=== PATIENT | female | born 1955 | race Caucasian/White ===

== ENCOUNTER → 2016-11-10 | Outpatient (CLI) | payer OTHER ==
[~2016-11-10] MED LIST: AMLO-511 PO; HYDR-3965 PO; LUTE6CAP2 PO; RIVA15T PO; ROSU10 PO
[2016-11-10 13:38] LABS: BASOPHILS % (AUTO) 0.8 % (0.0-2.0); EOSINOPHILS % (AUTO) 3.9 % (1.0-6.0); HEMATOCRIT 41.9 % (36-46); HEMOGLOBIN 13.7 g/dL (12.0-16.0); LYMPHOCYTES # (AUTO) 1.2 K/uL (1.0-4.8); LYMPHOCYTES % (AUTO) 21.3 % (22.0-44.0); MEAN CORPUSCULAR HEMOGLOBIN 28.9 pg (26.0-34.0); MEAN CORPUSCULAR HGB CONC 32.8 G/dL (31.0-37.0); MEAN CORPUSCULAR VOLUME 88 fL (80-100); MONOCYTES # (AUTO) 0.4 K/uL (0.1-1.0); MONOCYTES % (AUTO) 7.4 % (2.0-9.0); NEUTROPHILS # (AUTO) 3.8 K/uL (1.8-7.7); NEUTROPHILS % (AUTO) 66.6 % (40.0-70.0); PLATELET COUNT (AUTO) 194 K/uL (150-450); RED BLOOD CELL COUNT(AUTO) 4.76 MIL/uL (4.00-5.20); RED CELL DISTRIBUTION WIDTH 13.1 % (11.5-14.5); WHITE BLOOD COUNT (AUTO) 5.7 K/uL (4.5-11.0)
[2016-11-10 13:47] LABS: ALANINE AMINOTRANSFERASE 27 U/L (12-78); ALBUMIN 3.9 g/dL (3.4-5.0); ANION GAP 10 mmol/L (8-16); ASPARTATE AMINOTRANSFERASE 24 U/L (15-37); BILIRUBIN,TOTAL 0.5 mg/dL (0.1-1.0); CALCIUM, TOTAL 8.8 mg/dL (8.8-10.5); CARBON DIOXIDE 26 mmol/L (22-29); CHLORIDE 104 mmol/L (98-107); CREATININE 0.78 mg/dL (0.60-1.30); GLOMERULAR FILTR. RATE CALC > 60 mL/min (>60); POTASSIUM 4.1 mmol/L (3.5-5.1); SODIUM SERUM 140 mmol/L (136-145); TOTAL PROTEIN, SERUM 7.4 g/dL (6.4-8.2); UREA NITROGEN, BLOOD 17 mg/dL (7-18)
[2016-11-13 03:55] LABS: DRVVT CONFIRMATION-LUPUS 1.5 ratio (0.8-1.2); DRVVT CORRECTED MIX-LUPUS 71.8 sec (0.0-44.0); HEXAGONAL PHOS NEUTRALIZ REFLX 21 sec (0-11); LUP DRVVT CONFIRM REFLEX? YES; LUP DRVVT CORR. MIX REFLEX? YES; LUP HEXAGONL PHOS REFLEX? YES; LUP PTT-CORRECTED MIX REFLEX? YES; LUPUS SENSITIVE PTT 46.1 sec (0.0-40.6)
[2016-11-13 12:49] LABS: LUPUS ANTICOAG INTERPRETION Comment:
[2016-11-16 15:05] LABS: ANTITHROMBIN, ENZYMATIC ACTVTY 142 % (75-135); LUPUS INR 1.2 (0.9-1.1); PROTEIN C FUNCTIONAL(ACTIVITY) 144 % (73-180); PROTEIN S AG-TOTAL 122 % (60-150); PROTEIN S, FREE 135 % (57-157); PT-LUPUS ANTICOAGULANT 12.2 sec (9.6-11.5)
== END | disposition home or self-care (01) ==
LOC: LABPV 08:52
PROVIDERS: ATTEND Internal Medicine Hematology & Oncology
DX: Z86.711 Personal history of pulmonary embolism (principal)
CPT/HCPCS: 81240; 81241; 85300; 85305; 85306; 85613; 85732; 86147

== ENCOUNTER → 2017-04-14 | Outpatient (CLI) | payer OTHER ==
[2017-04-14 09:02] LABS: BASOPHILS # (AUTO) 0.04 K/uL (0.00-0.20); BASOPHILS % (AUTO) 0.7 % (0.0-2.0); EOSINOPHILS # (AUTO) 0.22 K/uL (0.00-0.70); HEMATOCRIT 41.2 % (36-46); HEMOGLOBIN 13.8 g/dL (12.0-16.0); LYMPHOCYTES # (AUTO) 1.2 K/uL (1.0-4.8); LYMPHOCYTES % (AUTO) 20.2 % (22.0-44.0); MEAN CORPUSCULAR HEMOGLOBIN 30.4 pg (26.0-34.0); MEAN CORPUSCULAR HGB CONC 33.5 G/dL (31.0-37.0); MEAN CORPUSCULAR VOLUME 91 fL (80-100); MONOCYTES # (AUTO) 0.5 K/uL (0.1-1.0); NEUTROPHILS # (AUTO) 3.8 K/uL (1.8-7.7); NEUTROPHILS % (AUTO) 67.3 % (40.0-70.0); PLATELET COUNT (AUTO) 163 K/uL (150-450); RED BLOOD CELL COUNT(AUTO) 4.54 MIL/uL (4.00-5.20); RED CELL DISTRIBUTION WIDTH 13.6 % (11.5-14.5); WHITE BLOOD COUNT (AUTO) 5.7 K/uL (4.5-11.0)
[2017-04-14 09:17] LABS: ALANINE AMINOTRANSFERASE 28 U/L (12-78); ALBUMIN 3.9 g/dL (3.4-5.0); ANION GAP 12 mmol/L (8-16); ASPARTATE AMINOTRANSFERASE 24 U/L (15-37); BILIRUBIN,TOTAL 0.7 mg/dL (0.1-1.0); CARBON DIOXIDE 25 mmol/L (22-29); CHLORIDE 105 mmol/L (98-107); CREATININE 0.85 mg/dL (0.60-1.30); GLOMERULAR FILTR. RATE CALC > 60 mL/min (>60); POTASSIUM 4.1 mmol/L (3.5-5.1); SODIUM SERUM 142 mmol/L (136-145); TOTAL PROTEIN, SERUM 7.3 g/dL (6.4-8.2); UREA NITROGEN, BLOOD 15 mg/dL (7-18)
[2017-04-14 09:28] LABS: HEMOGLOBIN A1C 6.2 % (4.5-6.2)
== END | disposition home or self-care (01) ==
LOC: LABPV 07:52
PROVIDERS: ATTEND Internal Medicine
DX: E78.5 Hyperlipidemia, unspecified (principal); Z79.899 Other long term (current) drug therapy
CPT/HCPCS: 83036

== ENCOUNTER 2017-05-07 06:53 | Day surgery (SDC) | payer OTHER ==
[~2017-05-07] VITALS: Ht 165.1 cm; Wt 113.6 kg
[~2017-05-07 06:53] MED LIST changes: -HYDR-3965 PO; -LUTE6CAP2 PO; +MULT-1192 PO; -RIVA15T PO; +RIVA20TA PO; +VALS1TAB75 PO
[2017-05-07] MEDS ORDERED: RINGERS SOLUTION,LACTATED 1,000 ML IV ONE ×2 (07:08→07:30)
[2017-05-07] MEDS ORDERED: SODIUM CL IRRIG SOLN BAG 6,000 ML IRRIG ONE (08:24)
[2017-05-07] MEDS ORDERED: OXYGEN THERAPY IH SCH (09:00)
[2017-05-07] MEDS ORDERED: MEPERIDINE-PF 25 MG/ML SYRINGE IVP PRN (09:00)
[2017-05-07] MEDS ORDERED: FentaNYL CITRATE-PF 100 MCG/2 ML VIAL IVP PRN (09:00)
[2017-05-07] MEDS ORDERED: KETOROLAC TROMETHAMINE 30 MG/ML VIAL ONE (10:19)
[2017-05-07] MEDS: HYDROmorphone 2 MG/ML SYRINGE IVP PRN ×3 (10:24→10:44)
[2017-05-07] MEDS ORDERED: KETOROLAC TROMETHAMINE 30 MG/ML VIAL IVP ONE (10:25)
[2017-05-07] MEDS ORDERED: MEPERIDINE-PF 25 MG/ML SYRINGE ONE (10:37)
[2017-05-07] MEDS ORDERED: HYDROmorphone 2 MG/ML SYRINGE ONE (10:38)
[2017-05-07] MEDS ORDERED: MIDAZOLAM HCL 2 MG/2 ML VIAL IVP ONE (12:00)
[2017-05-07] MEDS ORDERED: DEXAMETHASONE SOD PHOS 4 MG/ML VIAL IVP ONE (12:00)
[2017-05-07] MEDS ORDERED: GLYCOPYRROLATE 0.2 MG/ML VIAL IM ONE (12:00)
[2017-05-07] MEDS ORDERED: SUCCINYLCHOLINE CHLORIDE 20 MG/ML 10 ML VIAL IVP ONE (12:00)
[2017-05-07] MEDS ORDERED: ONDANSETRON HCL 4 MG/2 ML VIAL IVP ONE (12:00)
[2017-05-07] MEDS ORDERED: FentaNYL CITRATE-PF 100 MCG/2 ML VIAL IVP ONE (12:00)
[2017-05-07] MEDS ORDERED: METOCLOPRAMIDE HCL 5 MG/ML 2 ML VIAL IVP ONE (12:00)
== END 2017-05-07 12:45 | disposition home or self-care (01) ==
LOC: SURGERY 06:53
PROVIDERS: ATTEND Obstetrics & Gynecology
DX: D25.0 Submucous leiomyoma of uterus (principal); N84.0 Polyp of corpus uteri; J45.909 Unspecified asthma, uncomplicated; I10 Essential (primary) hypertension; E66.9 Obesity, unspecified; D68.62 Lupus anticoagulant syndrome; E11.9 Type 2 diabetes mellitus without complications; G47.33 Obstructive sleep apnea (adult) (pediatric); E78.00 Pure hypercholesterolemia, unspecified; M54.9 Dorsalgia, unspecified; E03.9 Hypothyroidism, unspecified; Z86.711 Personal history of pulmonary embolism; Z98.890 Other specified postprocedural states; Z72.89 Other problems related to lifestyle; Z91.040 Latex allergy status; Z90.49 Acquired absence of other specified parts of digestive tract; Z87.01 Personal history of pneumonia (recurrent); Z79.01 Long term (current) use of anticoagulants; Z87.09 Personal history of other diseases of the respiratory system; Z86.79 Personal history of other diseases of the circulatory system
CPT/HCPCS: 58558; 93005; J0330; J1100; J1170; J1885; J2175; J2250; J2405; J2765; J3010; J3490; J7120

== ENCOUNTER 2017-08-20 07:01 | Inpatient (IN) | payer OTHER ==
[2017-08-16 11:35] LABS: BASOPHILS # (AUTO) 0.04 K/uL (0.00-0.20); BASOPHILS % (AUTO) 0.6 % (0.0-2.0); EOSINOPHILS # (AUTO) 0.14 K/uL (0.00-0.70); EOSINOPHILS % (AUTO) 2.43 % (1.0-6.0); HEMATOCRIT 43.3 % (36-46); HEMOGLOBIN 14.4 g/dL (12.0-16.0); LYMPHOCYTES # (AUTO) 1.1 K/uL (1.0-4.8); LYMPHOCYTES % (AUTO) 18.5 % (22.0-44.0); MEAN CORPUSCULAR HEMOGLOBIN 30.6 pg (26.0-34.0); MEAN CORPUSCULAR HGB CONC 33.3 G/dL (31.0-37.0); MEAN CORPUSCULAR VOLUME 92 fL (80-100); MONOCYTES # (AUTO) 0.4 K/uL (0.1-1.0); MONOCYTES % (AUTO) 7.5 % (2.0-9.0); NEUTROPHILS # (AUTO) 4.2 K/uL (1.8-7.7); PLATELET COUNT (AUTO) 181 K/uL (150-450); RED CELL DISTRIBUTION WIDTH 13.5 % (11.5-14.5); WHITE BLOOD COUNT (AUTO) 5.9 K/uL (4.5-11.0)
[2017-08-16 11:55] LABS: INR 1.1 (0.9-1.1); PROTHROMBIN TIME 11.1 SEC (9.4-11.6)
[2017-08-17 12:03] LABS: ALANINE AMINOTRANSFERASE 29 U/L (12-78); ANION GAP 8 mmol/L (8-16); ASPARTATE AMINOTRANSFERASE 30 U/L (15-37); BILIRUBIN,TOTAL 0.7 mg/dL (0.1-1.0); CARBON DIOXIDE 26 mmol/L (22-29); CHLORIDE 102 mmol/L (98-107); CREATININE 0.75 mg/dL (0.60-1.30); GLOMERULAR FILTR. RATE CALC > 60 mL/min (>60); POTASSIUM 4.9 mmol/L (3.5-5.1); SODIUM SERUM 136 mmol/L (136-145); TOTAL PROTEIN, SERUM 7.7 g/dL (6.4-8.2); UREA NITROGEN, BLOOD 15 mg/dL (7-18)
[2017-08-17 12:56] LABS: APPEARANCE,URINE CLEAR (CLEAR); GLUCOSE, URINE (UA) NEGATIVE (NEGATIVE); KETONES,URINE NEGATIVE (NEGATIVE); LEUKOCYTE ESTERASE ,URINE NEGATIVE (NEGATIVE); OCCULT BLOOD,URINE NEGATIVE (NEGATIVE); PH,URINE 6.5 (5.0-8.0); PROTEIN,URINE NEGATIVE (NEGATIVE)
[2017-08-17 12:57] LABS: ADD UA MICROSCOPIC NO
[~2017-08-20] VITALS: Ht 165.1 cm; Wt 113.6 kg
[~2017-08-20 07:01] MED LIST changes: +ACETAMINOPHEN 1000 MG/ISO-OSM 100 ML IV ONE; +BUPIVACAINE LIPOSOME/PF 1.3%-13.3MG/ML SUSPENSION 20 ML VIAL INJ ONE; +DEXTROSE 5%-LACTATED RINGERS 1,000 ML IV SCH; +RINGERS SOLUTION,LACTATED 1,000 ML IV ONE
[2017-08-20] MEDS ORDERED: RINGERS SOLUTION,LACTATED 1,000 ML IV ONE ×2 (07:08→08:38)
[2017-08-20] MEDS ORDERED: MEPERIDINE-PF 25 MG/ML SYRINGE IVP PRN (07:30)
[2017-08-20] MEDS ORDERED: FentaNYL CITRATE-PF 100 MCG/2 ML VIAL IVP PRN (07:30)
[2017-08-20] MEDS: OXYGEN THERAPY IH SCH ×2 (08:00→20:30)
[2017-08-20] MEDS ORDERED: BUPIVACAINE HCL/PF 0.25% 30 ML VIAL ONE (08:38)
[2017-08-20] MEDS ORDERED: GUM MASTIC/STORAX/MSAL/ALCOHOL LIQUID 0.67 ML VIAL TP ONE (08:38)
[2017-08-20] MEDS ORDERED: SODIUM CHLORIDE 0.9% 1,000 ML IV ONE (08:38)
[2017-08-20] MEDS ORDERED: WATER FOR IRRIGATION,STERILE 1,000 ML IRRIG ONE (08:39)
[2017-08-20] MEDS ORDERED: FAMOTIDINE 10 MG/ML 2 ML VIAL IVP STA (08:51)
[2017-08-20] MEDS ORDERED: [UNRECOGNIZED DRUG - OTHER] IV ONE (09:17)
[2017-08-20] MEDS ORDERED: DEXTROSE IV ONE (09:17)
[2017-08-20] MEDS ORDERED: ALBUMIN HUMAN 5%-12.5GM/250ML 250 ML IV ONE (10:08)
[2017-08-20] MEDS ORDERED: BUPIVACAINE 0.25%/EPI 1:200,000/PF 10 ML VIAL ONE (10:30)
[2017-08-20] MEDS ORDERED: SODIUM CHLORIDE 0.9% 100 ML ONE (10:57)
[2017-08-20] MEDS ORDERED: VASOPRESSIN 20 UNITS/ML VIAL ONE (10:58)
[2017-08-20] MEDS ORDERED: METHYLENE BLUE 1% 10 ML VIAL ONE (11:34)
[2017-08-20] MEDS ORDERED: SODIUM CHLORIDE 0.9% 0 ML ONE (11:46)
[2017-08-20] MEDS ORDERED: FUROSEMIDE 40 MG/4 ML VIAL ONE (12:43)
[2017-08-20] MEDS ORDERED: MORPHINE SULFATE 4 MG/ML SYRINGE IVP PRN (13:15)
[2017-08-20] MEDS: HYDROmorphone 2 MG/ML SYRINGE IVP PRN ×5 (13:40→21:00)
[2017-08-20] MEDS ORDERED: HYDROmorphone 2 MG/ML SYRINGE ONE (13:41)
[2017-08-20] MEDS: KETOROLAC TROMETHAMINE 15 MG/ML VIAL IVP SCH ×2 (13:43→18:36)
[2017-08-20] MEDS ORDERED: KETOROLAC TROMETHAMINE 30 MG/ML VIAL ONE (13:44)
[2017-08-20] MEDS: CYCLOBENZAPRINE HCL 10 MG TABLET PO SCH ×3 (13:45→21:03)
[2017-08-20] MEDS ORDERED: ZOLPIDEM TARTRATE 10 MG TABLET PO PRN (13:45)
[2017-08-20] MEDS ORDERED: MEPERIDINE-PF 25 MG/ML SYRINGE ONE (13:55)
[2017-08-20] MEDS ORDERED: ACETAMINOPHEN 1000 MG/ISO-OSM 100 ML IV ONE (13:59)
[2017-08-20] MEDS: ACETAMINOPHEN 1000 MG/ISO-OSM 100 ML IV SCH ×2 (14:03→18:36)
[2017-08-20 15:46] VITALS: BP 114/72
[2017-08-20 16:00] VITALS: BP 117/64
[2017-08-20 16:45] VITALS: BP 128/68
[2017-08-20 17:30] VITALS: BP 112/55
[2017-08-20 20:35] VITALS: BP 124/69
[2017-08-20] MEDS: DOCUSATE SODIUM 100 MG CAPSULE PO SCH (21:00)
[2017-08-20 23:30] VITALS: BP 126/58
[2017-08-21] MEDS: KETOROLAC TROMETHAMINE 15 MG/ML VIAL IVP SCH ×4 (01:42→21:03)
[2017-08-21] MEDS: ACETAMINOPHEN 1000 MG/ISO-OSM 100 ML IV SCH ×2 (01:42→06:30)
[2017-08-21] MEDS: HYDROmorphone 2 MG/ML SYRINGE IVP PRN ×2 (03:20→09:24)
[2017-08-21 03:31] VITALS: BP 128/74
[2017-08-21] MEDS ORDERED: ROCURONIUM BROMIDE 10 MG/ML 5 ML VIAL IVP ONE ×2 (05:07→05:22)
[2017-08-21] MEDS ORDERED: DEXAMETHASONE SOD PHOS 4 MG/ML VIAL IVP ONE (05:22)
[2017-08-21] MEDS ORDERED: ONDANSETRON HCL 4 MG/2 ML VIAL IVP ONE (05:22)
[2017-08-21] MEDS ORDERED: METOCLOPRAMIDE HCL 5 MG/ML 2 ML VIAL IVP ONE (05:22)
[2017-08-21] MEDS ORDERED: EPHEDrine SULFATE 50 MG/ML VIAL IM ONE (05:22)
[2017-08-21] MEDS ORDERED: LIDOCAINE HCL/PF 2% 5 ML VIAL IM ONE (05:22)
[2017-08-21] MEDS ORDERED: NEOSTIGMINE METHYLSULFATE 1 MG/ML 10 ML VIAL IVP ONE (05:22)
[2017-08-21] MEDS ORDERED: GLYCOPYRROLATE 0.2 MG/ML VIAL IM ONE (05:22)
[2017-08-21] MEDS ORDERED: VECURONIUM BROMIDE 10 MG/VIAL IVP ONE (05:22)
[2017-08-21] MEDS ORDERED: ALBUTEROL SULFATE HFA 90 MCG/PUFF 8 GM INHALER IH ONE (05:22)
[2017-08-21] MEDS ORDERED: PROPOFOL 1% 20 ML VIAL IVP ONE (05:22)
[2017-08-21] MEDS ORDERED: KETAMINE HCL 50 MG/ML 10 ML VIAL IVP ONE (05:29)
[2017-08-21] MEDS ORDERED: HYDROmorphone 2 MG/ML SYRINGE IVP ONE (05:29)
[2017-08-21 05:57] LABS: BASOPHILS % (AUTO) 0.1 % (0.0-2.0); EOSINOPHILS % (AUTO) 0 % (1.0-6.0); HEMATOCRIT 33.1 % (36-46); HEMOGLOBIN 11.3 g/dL (12.0-16.0); LYMPHOCYTES # (AUTO) 0.7 K/uL (1.0-4.8); LYMPHOCYTES % (AUTO) 4.4 % (22.0-44.0); MEAN CORPUSCULAR HEMOGLOBIN 30.9 pg (26.0-34.0); MEAN CORPUSCULAR HGB CONC 34.1 G/dL (31.0-37.0); MEAN CORPUSCULAR VOLUME 91 fL (80-100); MONOCYTES # (AUTO) 0.8 K/uL (0.1-1.0); MONOCYTES % (AUTO) 5.2 % (2.0-9.0); NEUTROPHILS # (AUTO) 13.7 K/uL (1.8-7.7); PLATELET COUNT (AUTO) 147 K/uL (150-450); RED BLOOD CELL COUNT(AUTO) 3.65 MIL/uL (4.00-5.20); RED CELL DISTRIBUTION WIDTH 13.1 % (11.5-14.5); WHITE BLOOD COUNT (AUTO) 15.1 K/uL (4.5-11.0)
[2017-08-21] MEDS: ENOXAPARIN SODIUM 40 MG/0.4 ML PF SYRINGE SQ SCH (06:26)
[2017-08-21 06:42] LABS: NEUTROPHILS % (AUTO) 90.3 % (40.0-70.0)
[2017-08-21 08:00] VITALS: BP 129/56
[2017-08-21] MEDS ORDERED: [UNRECOGNIZED DRUG - OTHER] PO SCH (09:00)
[2017-08-21] MEDS: DOCUSATE SODIUM 100 MG CAPSULE PO SCH ×2 (09:22→21:02)
[2017-08-21] MEDS: HYDROCHLOROTHIAZIDE 25 MG TABLET PO SCH (09:22)
[2017-08-21] MEDS: MULTIVITAMINS, THERAPEUTIC TABLET PO SCH (09:23)
[2017-08-21] MEDS: VALSARTAN 160 MG TABLET PO SCH (09:23)
[2017-08-21] MEDS: CYCLOBENZAPRINE HCL 10 MG TABLET PO SCH (09:32)
[2017-08-21] MEDS: AmLODIPine BESYLATE 5 MG TABLET PO SCH (09:32)
[2017-08-21 12:00] VITALS: BP 123/60
[2017-08-21] MEDS ORDERED: BENZOCAINE/MENTHOL LOZENGE [8 LOZENGES/PACKET] PO PRN (12:00)
[2017-08-21 15:46] VITALS: BP 106/68
[2017-08-21] MEDS: OxyCODONE HCL/ACETAMINOPHEN 5-325 MG TABLET PO PRN (16:29)
[2017-08-21 19:46] VITALS: BP 104/48
[2017-08-21] MEDS: ROSUVASTATIN CALCIUM 10 MG TABLET PO SCH (21:02)
[2017-08-21 23:50] VITALS: BP 94/59
[2017-08-22] VITALS (7 sets, daily range): BP systolic 102–141; BP diastolic 45–70
[2017-08-22] MEDS: KETOROLAC TROMETHAMINE 15 MG/ML VIAL IVP SCH ×4 (03:36→19:53)
[2017-08-22] MEDS: ENOXAPARIN SODIUM 40 MG/0.4 ML PF SYRINGE SQ SCH (06:26)
[2017-08-22] MEDS: OxyCODONE HCL/ACETAMINOPHEN 5-325 MG TABLET PO PRN ×3 (06:35→21:08)
[2017-08-22] MEDS: VALSARTAN 160 MG TABLET PO SCH (08:01)
[2017-08-22] MEDS: MULTIVITAMINS, THERAPEUTIC TABLET PO SCH (08:01)
[2017-08-22] MEDS: HYDROCHLOROTHIAZIDE 25 MG TABLET PO SCH (08:01)
[2017-08-22] MEDS: CYCLOBENZAPRINE HCL 10 MG TABLET PO SCH ×2 (08:01→21:06)
[2017-08-22] MEDS: DOCUSATE SODIUM 100 MG CAPSULE PO SCH ×2 (08:01→19:53)
[2017-08-22] MEDS: AmLODIPine BESYLATE 5 MG TABLET PO SCH (08:03)
[2017-08-22] MEDS ORDERED: MAGNESIUM HYDROXIDE SUSPENSION 30 ML UDCUP PO PRN (12:00)
[2017-08-22] MEDS ORDERED: BISACODYL 10 MG RECTAL RECTAL SUPPOSITORY PR PRN (12:00)
[2017-08-22 14:17] LABS: GLUCOSE,POINT OF CARE 77 MG/DL (70-110)
[2017-08-22] MEDS: ROSUVASTATIN CALCIUM 10 MG TABLET PO SCH (21:05)
[2017-08-23] MEDS: KETOROLAC TROMETHAMINE 15 MG/ML VIAL IVP SCH ×2 (02:10→08:16)
[2017-08-23 05:10] VITALS: BP 110/66
[2017-08-23] MEDS: ENOXAPARIN SODIUM 40 MG/0.4 ML PF SYRINGE SQ SCH (06:23)
[2017-08-23 07:46] VITALS: BP 134/75
[2017-08-23] MEDS: MULTIVITAMINS, THERAPEUTIC TABLET PO SCH (08:14)
[2017-08-23] MEDS: CYCLOBENZAPRINE HCL 10 MG TABLET PO SCH (08:14)
[2017-08-23] MEDS: DOCUSATE SODIUM 100 MG CAPSULE PO SCH (08:14)
[2017-08-23] MEDS: HYDROCHLOROTHIAZIDE 25 MG TABLET PO SCH (09:00)
[2017-08-23] MEDS: VALSARTAN 160 MG TABLET PO SCH (09:00)
[2017-08-23] MEDS: AmLODIPine BESYLATE 5 MG TABLET PO SCH (09:00)
[2017-08-23] MEDS ORDERED: IBUP100O27 PO (10:12)
[2017-08-23] MEDS ORDERED: OXYC-38 PO (10:15)
[2017-08-23 11:32] VITALS: BP 101/64
[2017-08-23] MEDS ORDERED: PNEUMOCOCCAL VACCINE POLYVALENT 0.5 ML VIAL [PPSV23] IM ONE (13:15)
[2017-08-23 15:54] VITALS: BP 132/86
== END 2017-08-23 16:00 | disposition home or self-care (01) | DRG 742 ==
LOC: 6N 07:01 → 4E 08:33 → 6N 08-21 14:25
PROVIDERS: ADMIT Obstetrics & Gynecology; ATTEND Obstetrics & Gynecology
PROC: 0UT74ZZ Resection of Bilateral Fallopian Tubes, Percutaneous Endoscopic Approach (ICD-10-PCS; 2017-08-20)
PROC: 0UT24ZZ Resection of Bilateral Ovaries, Percutaneous Endoscopic Approach (ICD-10-PCS; 2017-08-20)
PROC: 0UT94ZZ Resection of Uterus, Percutaneous Endoscopic Approach (ICD-10-PCS; principal; 2017-08-20 09:00)
DX: N85.02 Endometrial intraepithelial neoplasia [EIN] (principal); Z68.41 Body mass index [BMI] 40.0-44.9, adult; D68.62 Lupus anticoagulant syndrome; D25.9 Leiomyoma of uterus, unspecified; N73.6 Female pelvic peritoneal adhesions (postinfective); J45.909 Unspecified asthma, uncomplicated; N95.0 Postmenopausal bleeding; E66.9 Obesity, unspecified; Z86.711 Personal history of pulmonary embolism; Z82.49 Family history of ischemic heart disease and other diseases of the circulatory system
CPT/HCPCS: 82962; 87081; 88307; 88313; 88341; 88342; 90471; 93005; 94760; C9290; G0238; J0131; J1100; J1170; J1650; J1885; J1940; J2175; J2405; J2704; J2765; J3490; J3535; J7030; J7050; J7120; P9041; Q9968

== ENCOUNTER → 2017-11-08 | Outpatient (CLI) | payer OTHER ==
[~2017-11-08] MED LIST changes: -ACETAMINOPHEN 1000 MG/ISO-OSM 100 ML IV ONE; -BUPIVACAINE LIPOSOME/PF 1.3%-13.3MG/ML SUSPENSION 20 ML VIAL INJ ONE; -DEXTROSE 5%-LACTATED RINGERS 1,000 ML IV SCH; +IBUP100O27 PO; +OXYC-38 PO; -RINGERS SOLUTION,LACTATED 1,000 ML IV ONE
[2017-11-08 14:12] LABS: BASOPHILS % (AUTO) 0.9 % (0.0-2.0); EOSINOPHILS % (AUTO) 1.1 % (1.0-6.0); HEMATOCRIT 44.1 % (36-46); HEMOGLOBIN 14.9 g/dL (12.0-16.0); LYMPHOCYTES # (AUTO) 1.3 K/uL (1.0-4.8); LYMPHOCYTES % (AUTO) 17.4 % (22.0-44.0); MEAN CORPUSCULAR HEMOGLOBIN 29.7 pg (26.0-34.0); MEAN CORPUSCULAR HGB CONC 33.8 G/dL (31.0-37.0); MEAN CORPUSCULAR VOLUME 88 fL (80-100); MONOCYTES # (AUTO) 0.6 K/uL (0.1-1.0); MONOCYTES % (AUTO) 7.4 % (2.0-9.0); NEUTROPHILS # (AUTO) 5.5 K/uL (1.8-7.7); NEUTROPHILS % (AUTO) 73.2 % (40.0-70.0); PLATELET COUNT (AUTO) 218 K/uL (150-450); RED BLOOD CELL COUNT(AUTO) 5.02 MIL/uL (4.00-5.20); RED CELL DISTRIBUTION WIDTH 13.4 % (11.5-14.5)
[2017-11-08 14:37] LABS: HEMOGLOBIN A1C 6.1 % (4.5-6.2)
[2017-11-08 14:40] LABS: ALANINE AMINOTRANSFERASE 33 U/L (12-78); ALBUMIN 4.5 g/dL (3.4-5.0); ALKALINE PHOSPHATASE 43 U/L (46-116); ANION GAP 9 mmol/L (8-16); ASPARTATE AMINOTRANSFERASE 20 U/L (15-37); BILIRUBIN,TOTAL 0.7 mg/dL (0.1-1.0); CALCIUM, TOTAL 9.6 mg/dL (8.8-10.5); CARBON DIOXIDE 28 mmol/L (22-29); CHLORIDE 103 mmol/L (98-107); CHOL/HDL RATIO 3.2 (3.9-5.7); CHOLESTEROL 218 mg/dL (131-200); CREATININE 0.75 mg/dL (0.60-1.30); GLOMERULAR FILTR. RATE CALC > 60 mL/min (>60); GLUCOSE,RANDOM 105 mg/dL (70-110); HDL CHOLESTEROL 69 mg/dL (40-60); LDL CHOL (CALC.) 113 mg/dL (0-130); POTASSIUM 4.3 mmol/L (3.5-5.1); SODIUM SERUM 140 mmol/L (136-145); THYROID STIMULATING HORMONE 2.32 uIU/mL (0.36-3.74); TOTAL PROTEIN, SERUM 8.4 g/dL (6.4-8.2); TRIGLYCERIDES 178 mg/dL (15-150); UREA NITROGEN, BLOOD 12 mg/dL (7-18)
== END | disposition home or self-care (01) ==
LOC: MSR 13:30
PROVIDERS: ATTEND Internal Medicine
DX: M47.892 Other spondylosis, cervical region (principal); E78.2 Mixed hyperlipidemia; Z79.899 Other long term (current) drug therapy
CPT/HCPCS: 72040; 83036; 84443

== ENCOUNTER → 2021-04-09 | Outpatient (CLI) | payer MEDICARE, BC ==
[~2021-04-09] MED LIST changes: +AMLO-257 PO; -AMLO-511 PO; -ROSU10 PO; +ROSU10TA72 PO; -VALS1TAB75 PO; +VALS1TAB76 PO
== END | disposition home or self-care (01) ==
LOC: RADPV 13:30
PROVIDERS: ATTEND Physical Medicine & Rehabilitation
DX: I73.9 Peripheral vascular disease, unspecified (principal)
CPT/HCPCS: 93925

== ENCOUNTER → 2021-07-22 | Outpatient (CLI) | payer MEDICARE, BC ==
[~2021-07-22] VITALS: Ht 165.1 cm; Wt 119.0 kg
[~2021-07-22] MED LIST changes: +INFLUENZA VIRUS VACCINE QVS 2021-22 (6MO+)/PF 60 MCG/0.5 ML SYRINGE IM. ONE
[2021-07-22 11:25] VITALS: BP 142/72
== END | disposition home or self-care (01) ==
LOC: SRCNTR 10:30
PROVIDERS: ATTEND Internal Medicine Critical Care Medicine
DX: Z23 Encounter for immunization (principal); I73.9 Peripheral vascular disease, unspecified; I26.99 Other pulmonary embolism without acute cor pulmonale; I10 Essential (primary) hypertension; E78.5 Hyperlipidemia, unspecified; M32.9 Systemic lupus erythematosus, unspecified; G47.33 Obstructive sleep apnea (adult) (pediatric); E66.01 Morbid (severe) obesity due to excess calories
CPT/HCPCS: 90471; 90686; G0463